=== PATIENT | male | born 1955 | race African-American/Black ===

== ENCOUNTER 2020-03-03 12:14 | Observation (INO) | payer OTHER, MEDICAID ==
[~2020-03-03] VITALS: Ht 182.9 cm; Wt 95.3 kg
[2020-03-03] VITALS (13 sets, daily range): BP systolic 112–143; BP diastolic 55–88
[~2020-03-03 12:14] MED LIST: AMARYL2 M1 PO; CIALIS20 MG PO; GLUCOPHAGE1000 MG PO; LIPITOR40 MG PO; TRULICITY1.5 MG/0.5 SUBQ; VALTREX 500 MG500 M1 PO
[2020-03-03 13:24] LABS: HEMATOCRIT 40.2 % (42.0-52.0); HEMOGLOBIN 14.2 gm/dL (14.0-18.0); MCH 31.4 pg (26.0-34.0); MCHC 35.2 g/dL (28.0-37.0); MCV 89.3 fL (80.0-100.0); MPV 8.5 fl. (7.2-11.1); RBC 4.5 mil/uL (4.50-6.00); RDW-CV 13.5 % (10.5-14.5); WBC 6.5 thou/uL (4.0-11.0)
[2020-03-03 13:35] LABS: ANION GAP 8 mmol/L (7-16); APTT 23.8 Seconds (25.0-31.3); BUN 18 mg/dL (7-18); CALCIUM 8.5 mg/dL (8.5-10.1); CHLORIDE 105 mmol/L (98-107); CO2 26 mmol/L (21-32); CREATININE 1.5 mg/dL (0.6-1.3); GLUCOSE 105 mg/dL (70-99); INR 1.1; POTASSIUM 4.2 mmol/L (3.5-5.1); PROTIME 11.1 Seconds (9.20-11.50); SODIUM 139 mmol/L (136-145)
[2020-03-03 13:40] LABS: ALBUMIN 3.9 g/dL (3.4-5.0); ALKALINE PHOSPHATASE 67 U/L (46-116); CHOLESTEROL 143 mg/dL (<200); HDL CHOLESTEROL 40 mg/dL (>40); LDL CHOLESTEROL 76 mg/dL (<100); SGOT 21 U/L (15-37); SGPT 33 U/L (30-65); TC:HDL 3.6 Ratio (Not establshd); TOTAL BILIRUBIN 0.3 mg/dL (<0.1-1.0); TOTAL PROTEIN 7.8 g/dL (6.4-8.2); TRIGLYCERIDE 138 mg/dL (<150); VLDL 28 mg/dL (<40)
[2020-03-03 13:41] LABS: SERUM ASSESSMENT Clear
--- NOTE | 2020-03-03 15:32 | EKG ---
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 : 1955 Requested By: Leonardo Valenzuela Order Number: [id number] Reading MD: Leonardo Valenzuela Measurements Intervals [place] Rate: 58 P: 44 [place]: 189 QRS: 29 QRSD: 90 T: 34 QT: 406 QTc: 399 Interpretive Statements Sinus rhythm Abnormal R-wave progression, early transition Borderline ST elevation, anterior leads early repolarization No previous ECG available for comparison Electronically Signed On 03-03-2020 15:30:58 CDT by Leonardo Valenzuela [email or web address] <ELECTRONICALLY SIGNED> By: Leonardo Valenzuela MD, FAC 03/03/20 1530 1356 1356 Leonardo Valenzuela MD, [facility] /EPI
--- NOTE | 2020-03-03 17:40 | EKG ---
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 : 1955 Requested By: Leonardo Valenzuela Order Number: [id number] Reading MD: Leonardo Valenzuela Measurements Intervals [place] Rate: 56 P: 45 [place]: 190 QRS: 25 QRSD: 94 T: 31 QT: 405 QTc: 391 Interpretive Statements Sinus rhythm Abnormal R-wave progression, early transition Borderline ST elevation, anterior leads early repolarization Compared to ECG 03/03/2020 13:56:09 No significant changes Electronically Signed On 03-03-2020 17:38:40 CDT by Leonardo Valenzuela [email or web address] <ELECTRONICALLY SIGNED> By: Leonardo Valenzuela MD, [facility] 03/03/20 1738 1615 1615 Leonardo Valenzuela MD, [facility] /EPI
--- NOTE | 2020-03-03 18:08 | CARD ---
[address] [address] CARDIAC CATH REPORT Name: NATASHA LOPEZ Renetta Room: [address] Liam M.RJonse#: [id number] Admission: 03/03/20 Attend Phys: Leonardo Valenzuela MD, F Discharge: Date of : 59 Report #: [id number] THIS REPORT FOR: //name// cc: Amber Guzman MD, Sequita MD ~ APPROVED REPORT Study performed: 03/03/2020 12:41:56 Patient Details Patient Status: Out-Patient Room #: The patient is a 64 year-old male Event Personnel Leonardo Valenzuela Manager New Product, Leighann Shaver RN Sand Slinger, Federico Sosa RTR Scrub, Gaby Jane RTR Monitor, Rose Marie Omer RN Monitor Procedures Performed Art Access - R radial artery , Left Heart Cath w/or w/o Coronaries LHC, DELMAR Place w/wo Plasty Single CIRC , Hemostasis with Hemoband Indication Dyspnea, Positive stress test, Chest pain Risk Factors Diabetes Admission/Lab Medications/Medications given during procedure Glycoprotein IllbIlla Inhibitors, Heparin Unfract., Heparin IV bolus 7500 units total, Aggrastat IV bolus 9.5 ml, Plavix PO 600 mg, Verapamil IA bolus 5 mg total, Nitroglycerin IA bolus 400 mcg total Procedure Narrative The patient was brought electively to the Cardiac Catheterization Laboratory and was prepped and draped in a sterile manner. The right wrist was infiltrated with 1% Lidocaine subcutaneous anesthesia. A 6F Slender Roma sheath was inserted into the right radial artery. Coronary angiography was performed using coronary diagnostic catheters. The right coronary system was accessed and visualized with a 6F JR4 catheter. The left coronary system was accessed and visualized with a 6F JL4 catheter. The [place] [address] CARDIAC CATH REPORT Name: JESSICANATASHA Renetta Room: [address]#: [id number] Admission: 03/03/20 Attend Phys: Leonardo Valenzuela MD, F Discharge: Date of : 59 Report #: [id number] and visualized with a 5F Angled Pigtail catheter. Left ventricular/Aortic Valve gradient assessed via catheter pullback. Left ventriculogram was performed in YU projection. Closure device was deployed with a 6 Fr Vasc-Band Reg 24cm. The patient tolerated the procedure well and there were no complications associated with the procedure. There was no hematoma. Intraoperative Conscious Sedation Sedation start time: 14:26 Case end Time: 15:11 Fentanyl 25 mcg Versed 2 mg Fluoro Time: 11.5 minutes Dose: DAP [id number] cGycm2 2332 mGy Contrast Type and Amount: Visipaque 170 ml Coronary Angiography The patient's coronary anatomy is left dominant. Diagnostic Cath Left Main 0% stenosis LAD 0% stenosis Diagonal 1 70% distal stenosis Circumflex 90% proximal stenosis Right Coronary small nondominant vessel with 90% proximal and 80% mid stenosis noted Left Ventriculography The left ventricular ejection fraction is estimated to be 60-65%. Left ventricular wall motion abnormalities are not present. There is no mitral insufficiency. Hemodynamics The aortic pressure is 112/62 mmHg with a mean of 82 mmHg. The left ventricular pressure is 110/10 mmHg with a mean of mmHg. The left ventricular end diastolic pressure is 12 mmHg. There was no gradient across the aortic valve upon pullback. Pullback from the left ventricle to the aorta revealed no gradient across the aortic valve. PCI Technique Lesion Anticoagulation was achieved with Heparin. bolus of iv aggrastat given Percutaneous coronary intervention was performed on the proximal circumflex artery segment. The lesion stenosis prior to intervention was 90% with TORI 3 flow. A 6FR XB 3.5 100CM Guide Catheter was used to engage the left main ostium. A [facility] 190[place] [address] CARDIAC CATH REPORT Name: NATASHA LOPEZ Room: [address]#: [id number] Admission: 03/03/20 Attend Phys: Leonardo Valenzuela MD, F Discharge: Date of : 59 Report #: [id number] Interventional Guidewire was used to cross the lesion. BALLOON DILATION A Balloon catheter Euphora SC 2.0x10mm was inserted and inflated up to 20.00atm for 16seconds. Repeat angiography revealed the following post-dilatation results: 40% stenosis. STENT DEPLOYMENT A drug-eluting stent [place] RX Stent 2.11P42hx was inserted and inflated up to 15.00atm for 23seconds. Repeat angiography revealed the following post-stent deployment results: 0% stenosis. Additional Inflation: 17.00atm for 12seconds. Final angiography reveals 0 % stenosis with TORI 3 flow. Conclusion 1. 90% stenosis of the proximal portion of a dominant circumflex artery 2. LVEF 60-65% 3. successful placement of a drug eluting stent in the proximal circumflex artery. Recommendations Cardiac Rehabilitation Referral Aggressive Medical Therapy Medications Administered Clopidogrel <ELECTRONICALLY SIGNED> By: Leonardo Valenzuela MD, [facility] 03/03/201805 05 05Leonardo Valenzuela MD, FACC /INF
[2020-03-04 04:15] VITALS: BP 98/43
[2020-03-04 05:14] LABS: HEMATOCRIT 42.6 % (42.0-52.0); HEMOGLOBIN 14.7 gm/dL (14.0-18.0); MCH 30.9 pg (26.0-34.0); MCHC 34.5 g/dL (28.0-37.0); MCV 89.6 fL (80.0-100.0); MPV 8.3 fl. (7.2-11.1); RBC 4.75 mil/uL (4.50-6.00); RDW-CV 13.6 % (10.5-14.5); WBC 8.5 thou/uL (4.0-11.0)
[2020-03-04 05:35] LABS: CALCIUM 8.5 mg/dL (8.5-10.1); CREATININE 1.3 mg/dL (0.6-1.3); POTASSIUM 4.4 mmol/L (3.5-5.1); TROPONIN-I LEVEL 0.56 ng/mL (<0.06)
--- NOTE | 2020-03-04 07:54 | NUR ---
PT CARE ASSUMED AT 1930. SAT MAINTAINED IN RA. ALERT AND ORIENTED X4. DENIES PAIN AND SOB. CALL LIGHT WITHIN REACH AND BED IN LOW POSIITON. HOURLY ROUNDING DONE FOR PT SAFETY.
[2020-03-04 08:00] VITALS: BP 119/63
[2020-03-04 08:38] VITALS: BP 135/70
[2020-03-04] MEDS ORDERED: NITROSTAT0.4 M1 SUBLING (09:11)
[2020-03-04] MEDS ORDERED: PLAVIX 75 MG TA75 MG PO (09:39)
--- NOTE | 2020-03-04 11:21 | EKG ---
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 : 1955 Requested By: Leonardo Valenzuela Order Number: [id number] Mary MD: Leonardo Valenzuela Measurements Intervals [place] Rate: 72 P: 52 [place]: 174 QRS: 22 QRSD: 88 T: 30 QT: 369 QTc: 404 Interpretive Statements Sinus rhythm Minimal ST elevation, anterior leads suggest early repolarization Compared to ECG 03/03/2020 16:15:59 No significant changes Electronically Signed On 03-04-2020 11:19:08 CDT by Leonardo Valenzuela [email or web address] <ELECTRONICALLY SIGNED> By: Leonardo Valenzuela MD, [facility] 03/04/20 1119 0415 0415 Leonardo Valenzuela MD, [facility] /EPI
--- NOTE | 2020-03-07 15:21 | D ---
[address] [address] DISCHARGE SUMMARY Name: NATASHA LOPEZ Room: [address] Liam Hammer#: [id number] Admission: 03/03/20 Attend Phys: Leonardo Valenzuela MD, F Discharge: 03/04/20 Date of : 59 Report #: [id number] THIS REPORT FOR: //name// cc: Amber Guzman MD, Sequita MD ~ THIS REPORT FOR: //name// CC: Leonardo Guzman MD DATE OF SERVICE: 03/04/2020 DISCHARGE DIAGNOSES: 1. Crescendo angina. 2. Coronary artery disease. 3. Diabetes. 4. Hyperlipidemia. CONSULTANTS: None. PROCEDURES: Left heart catheterization via the right radial artery with placement of a single drug-eluting stent in the circumflex artery. HISTORY OF PRESENT ILLNESS: The patient is a 64-year-old black male who was brought to the outpatient department to undergo cardiac catheterization. The patient has a long history of diabetes and hyperlipidemia. He had a previous coronary artery calcium score that was abnormal. However, he had no history of heart disease until recently he complained of exertional dyspnea and chest tightness, radiating to his arms. He saw my partner, Dr. Raj Whitten. He underwent a nuclear stress test at [facility]. This showed reversible defect in the inferior wall suggestive of ischemia. Ejection fraction 75%. This is felt to be consistent with ischemia. Because of symptoms and abnormal nuclear stress test, Dr. Whitten recommended cardiac catheterization. He denied palpitation or syncope. PAST MEDICAL HISTORY: Otherwise, he has had previous back surgery, diabetes, and hyperlipidemia. No history of hypertension. MEDICATIONS: Include Lipitor, Trulicity, Amaryl, metformin, and aspirin 81 mg twice a day. ALLERGIES: He had no known drug allergies. PHYSICAL EXAMINATION: GENERAL: [place] [address] DISCHARGE SUMMARY Name: NATASHA LOPEZ Room: [address]#: [id number] Admission: 03/03/20 Attend Phys: Leonardo Valenzuela MD, F Discharge: 03/04/20 Date of : 59 Report #: [id number] VITAL SIGNS: Blood pressure 120/80 and pulse was 80. CHEST: Clear to auscultation. CARDIOVASCULAR: Regular rate and rhythm. ABDOMEN: Soft. EXTREMITIES: Had no edema. SKIN: Warm and dry. RADIOLOGICAL DATA: His ECG showed a sinus rhythm with early repolarization. LABORATORY DATA: Sodium 138, creatinine 1.3, and glucose 151. Liver function studies were normal. Cholesterol 143, triglyceride 138, HDL 40, and LDL 76. His white blood cell count 6.5 and hemoglobin 14.2. HOSPITAL COURSE: The patient was admitted to the outpatient department. I then performed a cardiac catheterization from the right radial artery. Results, there was no significant disease in the left main artery or LAD. There was a medium-sized first diagonal branch had a distal 70% stenosis. The circumflex is a large dominant vessel with a proximal discrete 90% stenosis. Right coronary artery was a small nondominant vessel and had a proximal 90% and distal 80% stenosis. He was given heparin and Aggrastat. I then placed a single drug-eluting stent in the proximal circumflex artery. It was decided not to treat the right coronary artery, which was a small nondominant vessel. He tolerated the procedure well. He had no further chest pain, arrhythmias or heart failure. There was no hematoma in the right wrist following the procedure. Prior to discharge, the patient is ambulating, had no further complaints. Followup lab work after his procedure included a creatinine of 1.3, his troponin was mildly elevated at 0.56, and his hemoglobin is 14.7. He was discharged to continue his home medications that consisted of Lipitor which I increased to 80 mg a day and have to lower his LDL to less than 70, Maria E Quevedo, and he was not to take metformin for 48 hours after the procedure. If he remains stable after 1 week with no use of nitroglycerin, I think it is reasonable that he could use Cialis. I recommend he decrease aspirin to just 81 mg a day. He was started on Plavix 75 mg a day, which I take for one year following stent implantation. He was discharged to return to care of Dr. Amber Guzman for routine medical care. He was to contact my office if he has recurrent chest pain, shortness of breath or bleeding. He is scheduled to return to see Dr. Whitten in 1 month for followup in the Cardiology Clinic. He is felt to have a good prognosis from cardiac standpoint due to single vessel disease. At time of discharge, he had a blood pressure of 120/80, pulse 60, and he was afebrile. If blood pressure would tolerate it in the future, I would consider adding an FRANCISCO J inhibitor because of his diabetes and vascular disease. <ELECTRONICALLY SIGNED> By: Leonardo Valenzuela MD, [facility] 03/07/20 1521 0812 0837David Mj Valenzuela MD, FACC /nt
== END 2020-03-04 10:15 | disposition home or self-care (01) ==
LOC: M.CL 12:14 → M.TBA-CV 15:11 → M.2W 16:50
PROVIDERS: ADMIT Internal Medicine Cardiovascular Disease
DX: I25.119 Atherosclerotic heart disease of native coronary artery with unspecified angina pectoris (principal); E11.9 Type 2 diabetes mellitus without complications; E78.5 Hyperlipidemia, unspecified